=== PATIENT | female | born 1965 ===

== ENCOUNTER 2021-04-08 08:14 | Emergency (ER) | payer SELFPAY ==
--- NOTE | 2021-04-08 08:59 | XRay Report ---
LEFT SHOULDER 2 VIEW(S) INDICATION / CLINICAL INFORMATION: PAIN COMPARISON: None available. FINDINGS: BONES / JOINT(S): There is anterior and inferior dislocation of the left shoulder. No displaced fract ure seen. SOFT TISSUES: No significant abnormality. ADDITIONAL FINDINGS: None. IMPRESSION: 1. Left shoulder dislocation. Signer Name: Arash Gilmore MD Signed: 04/08/2021 8:55 AM Workstation Name: [id number]
[2021-04-08 13:02] VITALS: BP 174/84
== END 2021-04-08 12:58 | disposition left against medical advice (07) ==
LOC: ED 08:14
DX: Z00.8 Encounter for other general examination (principal); Z53.21 Procedure and treatment not carried out due to patient leaving prior to being seen by health care provider